=== PATIENT | female | born 1985 | race American Indian/Alaskan Native ===

== ENCOUNTER 2017-08-29 19:34 | Outpatient (CLI) | payer SELFPAY ==
[2017-08-29 20:04] VITALS: BP 108/71
== END 2017-08-29 20:45 | disposition home or self-care (01) ==
LOC: TRG 19:34 → LD 19:35 → TRG 20:45
PROVIDERS: ATTEND Obstetrics & Gynecology
DX: O48.0 Post-term pregnancy (principal); Z3A.40 40 weeks gestation of pregnancy
CPT/HCPCS: 59025

== ENCOUNTER 2017-09-01 12:11 | Inpatient (IN) | payer OTHER ==
[2017-09-01] MEDS ORDERED: NARCAN 0.4 MG/1 ML IV PRN (14:24)
[2017-09-01] MEDS ORDERED: MINERAL OIL PO PRN (14:24)
[2017-09-01] MEDS ORDERED: ePHEDrine SULFATE IV PRN (14:24)
[2017-09-01] MEDS ORDERED: BRETHINE IVP PRN (14:24)
[2017-09-01] MEDS ORDERED: ZOFRAN IV PRN (14:24)
[2017-09-01] MEDS ORDERED: XYLOCAINE 2% INFILTRATI ONE (14:24)
[2017-09-01] MEDS ORDERED: POLYCILLIN/NS 2 GM/100 ML 2 GM/100 ML BAG IV ONE ×3 (14:24→18:00)
[2017-09-01] MEDS ORDERED: SUBLIMAZE IV PRN (14:24)
[2017-09-01] MEDS ORDERED: BRETHINE SUB-Q PRN (14:24)
--- NOTE | 2017-09-01 14:30 | History and Physical Report ---
History of Present Illness Date of examination: 09/01/17 Chief complaint: SROM clear fluid @ 1100 History of present illness: Pt is a 31yo BF EDC 08/28/17; EGA 40 4/7 weeks presents to L&D complaining of SROM clear fluid @ 1100 followed by irregular contractions. She received care at [facility] and course was unremarkable. records are available, and GBS is Negative. Past History Past Medical History: no pertinent history Past Surgical History: no surgical history Family/Genetic History: none Social history: no significant social history, - Obstetrical History Expected Date of Delivery: 08/28/17 Actual Gestation: 40 Week(s) 5 Day(s) : 3 Medications and Allergies Allergies Allergy/AdvReac Type Severity Reaction Status Date / Time No Known Allergies Allergy Verified 08/29/17 19:43 Home Medications Medication Instructions Recorded Confirmed Last Taken Type Vitamins Tablet 1 mg DAILY 08/29/17 09/01/17 1 Day Ago History ~08/31/17 1 Valtrex 1 mg PO QAM 09/01/17 09/01/17 1 Day Ago History ~08/31/17 1 Review of Systems All systems: negative - Physical Exam Breasts: Positive: deferred Cardiovascular: Regular rate Lungs: Positive: Clear to auscultation Abdomen: Positive: normal appearance Genitourinary (Female): Positive: normal external genitalia Vagina: Positive: normal moisture Uterus: Positive: enlarged Extremities: Positive: normal - Obstetrical FHR: category 1 Uterine Contraction Monitor Mode: External Cervical Dilatation: 2 (per nurse) Cervical Effacement Percentage: 50 (per nurse) station: -3 Uterine Contraction Pattern: Absent Uterine Tone Measurement Phase: Contraction Results Result Diagrams: 09/01/17 15:03 All other labs normal. Assessment and Plan - Patient Problems (1) 40 weeks gestation of Onset Date: 09/01/17 Current Visit: Yes Status: Acute Plan to address problem: A: IUP @ 40 4/7 weeks in labor P: Admit to L&D for expectant vaginal delivery Will augment with pitocin
[2017-09-01] MEDS ORDERED: PITOCin/NS 30 UNIT/500ML 30 UNITS/500 ML BAG IV SCH ×2 (15:00)
[2017-09-01] MEDS ORDERED: PITOCin/NS 20 UNIT/1000ML DRIP 20 UNITS/1,000 ML BAG IV SCH (15:00)
[2017-09-01 15:36] LABS: Hematocrit 41.9 % (30.3-42.9); Hemoglobin 13.5 gm/dl (10.1-14.3); Mean Corpuscular HGB Conc 32 % (30-34); Mean Corpuscular Hemoglobin 28 pg (28-32); Mean Corpuscular Volume 87 fl (79-97); Red Blood Count 4.82 M/mm3 (3.65-5.03); Red Cell Distribution Width 14.7 % (13.2-15.2)
[2017-09-01 17:13] LABS: Platelet Count 97 K/mm3 (140-440)
[2017-09-01] MEDS: LACTATED RINGERS 1,000 ML IV SCH (18:24)
[2017-09-01] MEDS ORDERED: AMPICILLIN/NS 1 GM/50 ML 1 GM/50 ML BAG IV SCH (18:28)
[2017-09-02] MEDS: STADOL IV PRN ×2 (00:33→05:00)
[2017-09-02] MEDS: LACTATED RINGERS 1,000 ML IV SCH ×2 (01:55→04:07)
--- NOTE | 2017-09-02 03:56 | Progress Note ---
Assessment and Plan - Patient Problems (1) 40 weeks gestation of Onset Date: 09/01/17 Current Visit: Yes Status: Acute Plan to address problem: A: IUP @ 40 5/7 weeks in labor P: Will obtain an epidural, and then restart pitocin if possible Subjective - Subjective Date of service: 09/02/17 Principal diagnosis: IUP @ 40 5/7 weeks Interval history: Pt is a 31yo BF EDC 08/28/17; EGA 40 5/7 weeks who presented to L&D complaining of SROM clear fluid @ 1100 09/01/17 followed by irregular contractions. She was started on pitocin, but developed a non-reassuring tracing for which pitocin was discontinued. She has not had any significant cervical change. Patient reports: loss of fluid, movement normal, contractions, no new complaints, no vaginal bleeding Objective - Vital Signs Vital Signs: Vital Signs - 12hr 09/01/17 09/01/17 09/01/17 16:31 17:00 19:32 Temperature 97.7 F 98.5 F Pulse Rate 82 82 Respiratory 16 18 Rate Blood Pressure 117/70 Blood Pressure 115/70 [Left] O2 Sat by Pulse Oximetry 09/01/17 09/01/17 09/01/17 19:39 19:50 19:55 Temperature Pulse Rate 88 89 91 H Respiratory Rate Blood Pressure 115/70 Blood Pressure [Left] O2 Sat by Pulse 97 97 Oximetry 09/01/17 09/01/17 09/01/17 20:00 20:05 20:10 Temperature Pulse Rate 90 91 H 90 Respiratory Rate Blood Pressure Blood Pressure [Left] O2 Sat by Pulse 97 97 96 Oximetry 09/01/17 09/01/17 09/01/17 20:15 20:20 20:25 Temperature Pulse Rate 85 95 H 90 Respiratory Rate Blood Pressure Blood Pressure [Left] O2 Sat by Pulse 98 98 97 Oximetry 09/01/17 09/01/17 09/01/17 20:30 20:35 20:40 Temperature Pulse Rate 96 H 106 H 85 Respiratory Rate Blood Pressure Blood Pressure [Left] O2 Sat by Pulse 97 97 97 Oximetry 09/01/17 09/01/17 09/01/17 20:45 20:50 20:55 Temperature Pulse Rate 94 H 93 H 92 H Respiratory Rate Blood Pressure Blood Pressure [Left] O2 Sat by Pulse 96 97 98 Oximetry 09/01/17 09/01/17 09/01/17 21:00 21:05 21:10 Temperature Pulse Rate 90 95 H 98 H Respiratory Rate Blood Pressure Blood Pressure [Left] O2 Sat by Pulse 97 97 97 Oximetry 09/01/17 09/01/17 09/01/17 21:15 21:20 21:25 Temperature Pulse Rate 86 88 Respiratory 18 Rate Blood Pressure Blood Pressure [Left] O2 Sat by Pulse 97 98 Oximetry 09/01/17 09/01/17 09/01/17 21:26 21:31 21:36 Temperature Pulse Rate 80 89 89 Respiratory Rate Blood Pressure Blood Pressure [Left] O2 Sat by Pulse 98 97 96 Oximetry 09/01/17 09/01/17 09/01/17 21:37 21:41 21:43 Temperature Pulse Rate 88 88 90 Respiratory Rate Blood Pressure Blood Pressure [Left] O2 Sat by Pulse 94 95 94 Oximetry 09/01/17 09/01/17 09/01/17 21:46 21:51 21:53 Temperature Pulse Rate 87 89 94 H Respiratory Rate Blood Pressure Blood Pressure [Left] O2 Sat by Pulse 96 96 93 Oximetry 09/01/17 09/01/17 09/01/17 21:55 21:56 22:01 Temperature Pulse Rate 85 89 Respiratory 18 Rate Blood Pressure Blood Pressure [Left] O2 Sat by Pulse 95 97 Oximetry 09/01/17 09/01/17 09/01/17 22:06 22:07 22:11 Temperature Pulse Rate 82 83 82 Respiratory Rate Blood Pressure Blood Pressure [Left] O2 Sat by Pulse 95 94 95 Oximetry 09/01/17 09/01/17 09/01/17 22:13 22:16 22:21 Temperature Pulse Rate 78 85 95 H Respiratory Rate Blood Pressure Blood Pressure [Left] O2 Sat by Pulse 94 95 96 Oximetry 09/01/17 09/01/17 09/01/17 22:26 22:28 22:31 Temperature Pulse Rate 78 79 85 Respiratory Rate Blood Pressure Blood Pressure [Left] O2 Sat by Pulse 95 94 95 Oximetry 09/01/17 09/01/17 09/01/17 22:36 22:41 22:42 Temperature Pulse Rate 84 82 86 Respiratory Rate Blood Pressure Blood Pressure [Left] O2 Sat by Pulse 94 96 94 Oximetry 09/01/17 09/01/17 09/01/17 22:46 22:51 23:01 Temperature Pulse Rate 89 86 98 H Respiratory Rate Blood Pressure Blood Pressure [Left] O2 Sat by Pulse 95 97 97 Oximetry 09/01/17 09/01/17 09/01/17 23:06 23:11 23:16 Temperature Pulse Rate 89 90 91 H Respiratory Rate Blood Pressure 111/70 Blood Pressure [Left] O2 Sat by Pulse 98 97 97 Oximetry 09/01/17 09/01/17 09/01/17 23:21 23:26 23:31 Temperature Pulse Rate 80 88 90 Respiratory Rate Blood Pressure Blood Pressure [Left] O2 Sat by Pulse 97 98 97 Oximetry 09/01/17 09/01/17 09/01/17 23:32 23:36 23:41 Temperature Pulse Rate 82 93 H 89 Respiratory Rate Blood Pressure 113/69 Blood Pressure [Left] O2 Sat by Pulse 99 100 Oximetry 09/01/17 09/01/17 09/01/17 23:46 23:51 23:56 Temperature Pulse Rate 82 85 86 Respiratory Rate Blood Pressure Blood Pressure [Left] O2 Sat by Pulse 100 100 100 Oximetry 09/02/17 09/02/17 09/02/17 00:01 00:03 00:06 Temperature Pulse Rate 87 86 93 H Respiratory Rate Blood Pressure 122/76 Blood Pressure [Left] O2 Sat by Pulse 100 100 Oximetry 09/02/17 09/02/17 09/02/17 00:11 00:16 00:21 Temperature Pulse Rate 90 90 89 Respiratory Rate Blood Pressure Blood Pressure [Left] O2 Sat by Pulse 100 100 99 Oximetry 09/02/17 09/02/17 09/02/17 00:26 00:31 00:32 Temperature Pulse Rate 87 86 88 Respiratory Rate Blood Pressure 123/75 Blood Pressure [Left] O2 Sat by Pulse 100 100 Oximetry 09/02/17 09/02/17 09/02/17 00:33 00:36 00:41 Temperature Pulse Rate 89 82 Respiratory 18 Rate Blood Pressure Blood Pressure [Left] O2 Sat by Pulse 100 100 Oximetry 09/02/17 09/02/17 09/02/17 00:46 00:51 00:56 Temperature Pulse Rate 80 79 78 Respiratory Rate Blood Pressure Blood Pressure [Left] O2 Sat by Pulse 99 99 99 Oximetry 09/02/17 09/02/17 09/02/17 01:02 01:06 01:12 Temperature Pulse Rate 76 76 77 Respiratory Rate Blood Pressure 112/67 Blood Pressure [Left] O2 Sat by Pulse 99 99 99 Oximetry 09/02/17 09/02/17 09/02/17 01:16 01:21 01:26 Temperature Pulse Rate 83 82 82 Respiratory Rate Blood Pressure Blood Pressure [Left] O2 Sat by Pulse 99 98 99 Oximetry 09/02/17 09/02/17 09/02/17 01:31 01:32 01:36 Temperature Pulse Rate 84 83 83 Respiratory Rate Blood Pressure 117/69 Blood Pressure [Left] O2 Sat by Pulse 99 100 Oximetry 09/02/17 09/02/17 09/02/17 01:41 01:46 01:51 Temperature Pulse Rate 88 84 89 Respiratory Rate Blood Pressure Blood Pressure [Left] O2 Sat by Pulse 99 100 100 Oximetry 09/02/17 09/02/17 09/02/17 01:56 02:01 02:02 Temperature Pulse Rate 95 H 82 82 Respiratory Rate Blood Pressure 119/76 Blood Pressure [Left] O2 Sat by Pulse 99 98 Oximetry 09/02/17 09/02/17 09/02/17 02:06 02:11 02:16 Temperature Pulse Rate 82 88 83 Respiratory Rate Blood Pressure Blood Pressure [Left] O2 Sat by Pulse 99 98 99 Oximetry 09/02/17 09/02/17 09/02/17 02:21 02:26 02:31 Temperature Pulse Rate 86 88 93 H Respiratory Rate Blood Pressure Blood Pressure [Left] O2 Sat by Pulse 100 99 99 Oximetry 09/02/17 09/02/17 09/02/17 02:32 02:37 02:42 Temperature Pulse Rate 83 89 90 Respiratory Rate Blood Pressure 130/77 Blood Pressure [Left] O2 Sat by Pulse 98 99 Oximetry 09/02/17 09/02/17 09/02/17 02:46 02:51 02:56 Temperature Pulse Rate 86 86 93 H Respiratory Rate Blood Pressure Blood Pressure [Left] O2 Sat by Pulse 99 100 99 Oximetry 09/02/17 09/02/17 09/02/17 03:01 03:02 03:06 Temperature Pulse Rate 89 89 94 H Respiratory Rate Blood Pressure 132/78 Blood Pressure [Left] O2 Sat by Pulse 99 99 Oximetry 09/02/17 09/02/17 09/02/17 03:11 03:16 03:21 Temperature Pulse Rate 100 H 91 H 92 H Respiratory Rate Blood Pressure Blood Pressure [Left] O2 Sat by Pulse 100 99 99 Oximetry 09/02/17 09/02/17 09/02/17 03:26 03:31 03:34 Temperature Pulse Rate 94 H 98 H 101 H Respiratory Rate Blood Pressure 101/61 Blood Pressure [Left] O2 Sat by Pulse 99 100 Oximetry 09/02/17 09/02/17 09/02/17 03:37 03:42 03:46 Temperature Pulse Rate 91 H 93 H 93 H Respiratory Rate Blood Pressure Blood Pressure [Left] O2 Sat by Pulse 100 99 100 Oximetry - Exam FHR: category 2 Uterine Contraction Monitor Mode: External Cervical Dilatation: 3 Cervical Effacement Percentage: 70 station: -2 Uterine Contraction Pattern: Irregular Uterine Tone Measurement Phase: Contraction Uterine Contraction Intensity: Moderate - Labs Labs: Abnormal Labs 09/01/17 15:03 Plt Count 97 L Laboratory Results - last 24 hr 09/01/17 09/01/17 15:03 15:19 WBC 6.2 RBC 4.82 Hgb 13.5 Hct 41.9 MCV 87 MCH 28 MCHC 32 RDW 14.7 Plt Count 97 L Blood Type O POSITIVE Antibody Screen Negative
[2017-09-02 04:31] LABS: Hematocrit 41.5 % (30.3-42.9); Hemoglobin 14.1 gm/dl (10.1-14.3); Mean Corpuscular HGB Conc 34 % (30-34); Mean Corpuscular Hemoglobin 29 pg (28-32); Mean Corpuscular Volume 85 fl (79-97); Red Blood Count 4.86 M/mm3 (3.65-5.03); Red Cell Distribution Width 14.6 % (13.2-15.2)
[2017-09-02 04:34] LABS: Platelet Count 87 K/mm3 (140-440)
--- NOTE | 2017-09-02 08:26 | Progress Note ---
Assessment and Plan - Patient Problems (1) 40 weeks gestation of Onset Date: 09/01/17 Current Visit: Yes Status: Acute Plan to address problem: A: IUP @ 40 5/7 weeks in labor P: Will restart pitocin if possible Continue close monitoring Subjective - Subjective Date of service: 09/02/17 Principal diagnosis: IUP @ 40 5/7 weeks Interval history: Pt is a 31yo BF EDC 08/28/17; EGA 40 5/7 weeks who presented to L&D complaining of SROM clear fluid @ 1100 09/01/17 followed by irregular contractions. She was started on pitocin, but developed a non-reassuring tracing for which pitocin was discontinued. Her tracing has now improved to Cat 1, but unable to get an epidural due to platelet count <100k. Patient reports: loss of fluid, movement normal, contractions, no new complaints, no vaginal bleeding Objective - Vital Signs Vital Signs: Vital Signs - 12hr 09/01/17 09/01/17 09/01/17 20:25 20:30 20:35 Temperature Pulse Rate 90 96 H 106 H Respiratory Rate Blood Pressure O2 Sat by Pulse 97 97 97 Oximetry 09/01/17 09/01/17 09/01/17 20:40 20:45 20:50 Temperature Pulse Rate 85 94 H 93 H Respiratory Rate Blood Pressure O2 Sat by Pulse 97 96 97 Oximetry 09/01/17 09/01/17 09/01/17 20:55 21:00 21:05 Temperature Pulse Rate 92 H 90 95 H Respiratory Rate Blood Pressure O2 Sat by Pulse 98 97 97 Oximetry 09/01/17 09/01/17 09/01/17 21:10 21:15 21:20 Temperature Pulse Rate 98 H 86 88 Respiratory Rate Blood Pressure O2 Sat by Pulse 97 97 98 Oximetry 09/01/17 09/01/17 09/01/17 21:25 21:26 21:31 Temperature Pulse Rate 80 89 Respiratory 18 Rate Blood Pressure O2 Sat by Pulse 98 97 Oximetry 09/01/17 09/01/17 09/01/17 21:36 21:37 21:41 Temperature Pulse Rate 89 88 88 Respiratory Rate Blood Pressure O2 Sat by Pulse 96 94 95 Oximetry 09/01/17 09/01/17 09/01/17 21:43 21:46 21:51 Temperature Pulse Rate 90 87 89 Respiratory Rate Blood Pressure O2 Sat by Pulse 94 96 96 Oximetry 09/01/17 09/01/17 09/01/17 21:53 21:55 21:56 Temperature Pulse Rate 94 H 85 Respiratory 18 Rate Blood Pressure O2 Sat by Pulse 93 95 Oximetry 09/01/17 09/01/17 09/01/17 22:01 22:06 22:07 Temperature Pulse Rate 89 82 83 Respiratory Rate Blood Pressure O2 Sat by Pulse 97 95 94 Oximetry 09/01/17 09/01/17 09/01/17 22:11 22:13 22:16 Temperature Pulse Rate 82 78 85 Respiratory Rate Blood Pressure O2 Sat by Pulse 95 94 95 Oximetry 09/01/17 09/01/17 09/01/17 22:21 22:26 22:28 Temperature Pulse Rate 95 H 78 79 Respiratory Rate Blood Pressure O2 Sat by Pulse 96 95 94 Oximetry 09/01/17 09/01/17 09/01/17 22:31 22:36 22:41 Temperature Pulse Rate 85 84 82 Respiratory Rate Blood Pressure O2 Sat by Pulse 95 94 96 Oximetry 09/01/17 09/01/17 09/01/17 22:42 22:46 22:51 Temperature Pulse Rate 86 89 86 Respiratory Rate Blood Pressure O2 Sat by Pulse 94 95 97 Oximetry 09/01/17 09/01/17 09/01/17 23:01 23:06 23:11 Temperature Pulse Rate 98 H 89 90 Respiratory Rate Blood Pressure 111/70 O2 Sat by Pulse 97 98 97 Oximetry 09/01/17 09/01/17 09/01/17 23:16 23:21 23:26 Temperature Pulse Rate 91 H 80 88 Respiratory Rate Blood Pressure O2 Sat by Pulse 97 97 98 Oximetry 09/01/17 09/01/17 09/01/17 23:31 23:32 23:36 Temperature Pulse Rate 90 82 93 H Respiratory Rate Blood Pressure 113/69 O2 Sat by Pulse 97 99 Oximetry 09/01/17 09/01/17 09/01/17 23:41 23:46 23:51 Temperature Pulse Rate 89 82 85 Respiratory Rate Blood Pressure O2 Sat by Pulse 100 100 100 Oximetry 09/01/17 09/02/17 09/02/17 23:56 00:01 00:03 Temperature Pulse Rate 86 87 86 Respiratory Rate Blood Pressure 122/76 O2 Sat by Pulse 100 100 Oximetry 09/02/17 09/02/17 09/02/17 00:06 00:11 00:16 Temperature Pulse Rate 93 H 90 90 Respiratory Rate Blood Pressure O2 Sat by Pulse 100 100 100 Oximetry 09/02/17 09/02/17 09/02/17 00:21 00:26 00:31 Temperature Pulse Rate 89 87 86 Respiratory Rate Blood Pressure O2 Sat by Pulse 99 100 100 Oximetry 09/02/17 09/02/17 09/02/17 00:32 00:33 00:36 Temperature Pulse Rate 88 89 Respiratory 18 Rate Blood Pressure 123/75 O2 Sat by Pulse 100 Oximetry 09/02/17 09/02/17 09/02/17 00:41 00:46 00:51 Temperature Pulse Rate 82 80 79 Respiratory Rate Blood Pressure O2 Sat by Pulse 100 99 99 Oximetry 09/02/17 09/02/17 09/02/17 00:56 01:02 01:06 Temperature Pulse Rate 78 76 76 Respiratory Rate Blood Pressure 112/67 O2 Sat by Pulse 99 99 99 Oximetry 09/02/17 09/02/17 09/02/17 01:12 01:16 01:21 Temperature Pulse Rate 77 83 82 Respiratory Rate Blood Pressure O2 Sat by Pulse 99 99 98 Oximetry 09/02/17 09/02/17 09/02/17 01:26 01:31 01:32 Temperature Pulse Rate 82 84 83 Respiratory Rate Blood Pressure 117/69 O2 Sat by Pulse 99 99 Oximetry 09/02/17 09/02/17 09/02/17 01:36 01:41 01:46 Temperature Pulse Rate 83 88 84 Respiratory Rate Blood Pressure O2 Sat by Pulse 100 99 100 Oximetry 09/02/17 09/02/17 09/02/17 01:51 01:56 02:01 Temperature Pulse Rate 89 95 H 82 Respiratory Rate Blood Pressure O2 Sat by Pulse 100 99 98 Oximetry 09/02/17 09/02/17 09/02/17 02:02 02:06 02:11 Temperature Pulse Rate 82 82 88 Respiratory Rate Blood Pressure 119/76 O2 Sat by Pulse 99 98 Oximetry 09/02/17 09/02/17 09/02/17 02:16 02:21 02:26 Temperature Pulse Rate 83 86 88 Respiratory Rate Blood Pressure O2 Sat by Pulse 99 100 99 Oximetry 09/02/17 09/02/17 09/02/17 02:31 02:32 02:37 Temperature Pulse Rate 93 H 83 89 Respiratory Rate Blood Pressure 130/77 O2 Sat by Pulse 99 98 Oximetry 09/02/17 09/02/17 09/02/17 02:42 02:46 02:51 Temperature Pulse Rate 90 86 86 Respiratory Rate Blood Pressure O2 Sat by Pulse 99 99 100 Oximetry 09/02/17 09/02/17 09/02/17 02:56 03:01 03:02 Temperature Pulse Rate 93 H 89 89 Respiratory Rate Blood Pressure 132/78 O2 Sat by Pulse 99 99 Oximetry 09/02/17 09/02/17 09/02/17 03:06 03:11 03:16 Temperature Pulse Rate 94 H 100 H 91 H Respiratory Rate Blood Pressure O2 Sat by Pulse 99 100 99 Oximetry 09/02/17 09/02/17 09/02/17 03:21 03:26 03:31 Temperature Pulse Rate 92 H 94 H 98 H Respiratory Rate Blood Pressure O2 Sat by Pulse 99 99 100 Oximetry 09/02/17 09/02/17 09/02/17 03:34 03:37 03:42 Temperature Pulse Rate 101 H 91 H 93 H Respiratory Rate Blood Pressure 101/61 O2 Sat by Pulse 100 99 Oximetry 09/02/17 09/02/17 09/02/17 03:46 03:55 04:01 Temperature 98.3 F Pulse Rate 93 H 98 H 99 H Respiratory Rate Blood Pressure O2 Sat by Pulse 100 99 97 Oximetry 09/02/17 09/02/17 09/02/17 04:05 04:11 04:16 Temperature Pulse Rate 102 H 103 H 104 H Respiratory Rate Blood Pressure O2 Sat by Pulse 100 99 99 Oximetry 09/02/17 09/02/17 09/02/17 04:20 04:25 04:31 Temperature Pulse Rate 103 H 97 H 106 H Respiratory Rate Blood Pressure O2 Sat by Pulse 100 100 100 Oximetry 09/02/17 09/02/17 09/02/17 04:35 04:40 04:45 Temperature Pulse Rate 108 H 107 H 105 H Respiratory Rate Blood Pressure 118/72 O2 Sat by Pulse 100 100 99 Oximetry 09/02/17 09/02/17 09/02/17 04:50 04:55 05:00 Temperature Pulse Rate 113 H 112 H 100 H Respiratory 18 Rate Blood Pressure O2 Sat by Pulse 99 99 100 Oximetry 09/02/17 09/02/1718 05:05 05:10 05:15 Temperature Pulse Rate 101 H 97 H 90 Respiratory Rate Blood Pressure O2 Sat by Pulse 100 97 98 Oximetry 09/02/17 09/02/17 09/02/17 05:20 05:25 05:30 Temperature Pulse Rate 86 97 H 94 H Respiratory Rate Blood Pressure O2 Sat by Pulse 98 97 97 Oximetry 09/02/17 09/02/17 09/02/17 05:35 05:40 05:45 Temperature Pulse Rate 91 H 92 H 95 H Respiratory Rate Blood Pressure 134/74 O2 Sat by Pulse 98 98 98 Oximetry 09/02/17 09/02/17 09/02/17 05:50 05:55 06:00 Temperature Pulse Rate 92 H 97 H 94 H Respiratory Rate Blood Pressure O2 Sat by Pulse 98 96 97 Oximetry 09/02/17 09/02/17 09/02/17 06:05 06:10 06:15 Temperature Pulse Rate 97 H 98 H 100 H Respiratory Rate Blood Pressure O2 Sat by Pulse 98 98 98 Oximetry 09/02/17 09/02/17 09/02/17 06:20 06:25 06:30 Temperature Pulse Rate 92 H 101 H 99 H Respiratory Rate Blood Pressure O2 Sat by Pulse 98 98 98 Oximetry 09/02/17 09/02/17 09/02/17 06:34 06:35 06:40 Temperature Pulse Rate 101 H 102 H 96 H Respiratory Rate Blood Pressure 110/73 O2 Sat by Pulse 98 98 Oximetry 09/02/17 09/02/17 09/02/17 06:45 06:50 06:55 Temperature Pulse Rate 94 H 105 H 94 H Respiratory Rate Blood Pressure O2 Sat by Pulse 99 99 98 Oximetry 09/02/17 09/02/17 09/02/17 07:00 07:05 07:10 Temperature Pulse Rate 94 H 98 H 102 H Respiratory Rate Blood Pressure O2 Sat by Pulse 97 97 97 Oximetry 09/02/17 09/02/17 09/02/17 07:15 07:20 07:25 Temperature Pulse Rate 97 H 101 H 105 H Respiratory Rate Blood Pressure O2 Sat by Pulse 97 98 98 Oximetry 09/02/17 09/02/17 09/02/17 07:30 07:34 07:35 Temperature Pulse Rate 103 H 94 H 92 H Respiratory Rate Blood Pressure 130/76 O2 Sat by Pulse 98 98 Oximetry 09/02/17 09/02/17 09/02/17 07:40 07:45 08:15 Temperature Pulse Rate 94 H 92 H 101 H Respiratory Rate Blood Pressure O2 Sat by Pulse 98 98 98 Oximetry 09/02/17 09/02/17 08:20 08:25 Temperature Pulse Rate 96 H 98 H Respiratory Rate Blood Pressure O2 Sat by Pulse 97 96 Oximetry - Exam Abdomen: Present: normal appearance, soft Uterus: Present: normal FHR: category 1 Uterine Contraction Monitor Mode: External Cervical Dilatation: 4 (per nurse) Cervical Effacement Percentage: 70 (per nurse) station: -2 Uterine Contraction Pattern: Irregular Uterine Tone Measurement Phase: Contraction Uterine Contraction Intensity: Mild - Labs Labs: Abnormal Labs 09/01/17 09/02/17 15:03 04:00 Plt Count 97 L 87 L Laboratory Results - last 24 hr 09/01/17 09/01/17 09/02/17 15:03 15:19 04:00 WBC 6.2 10.0 RBC 4.82 4.86 Hgb 13.5 14.1 Hct 41.9 41.5 MCV 87 85 MCH 28 29 MCHC 32 34 RDW 14.7 14.6 Plt Count 97 L 87 L Blood Type O POSITIVE Antibody Screen Negative
--- NOTE | 2017-09-02 08:59 | Anesthesia Consultation ---
Anesthesia Consult and Med Hx Date of service: 09/02/17 - Airway Anesthetic Teeth Evaluation: Good ROM Head & Neck: Adequate Mental/Hyoid Distance: Adequate Mallampati Class: Class II Intubation Access Assessment: Probably Good - Pre-Operative Health Status ASA Pre-Surgery Classification: ASA2 Proposed Anesthetic Plan: General - Pulmonary Hx Asthma: No COPD: No Hx Pneumonia: No - Cardiovascular System Hx Hypertension: No - Central Nervous System Hx Seizures: No Hx Psychiatric Problems: No - Endocrine Hx Renal Disease: No Hx End Stage Renal Disease: No Hx Hypothyroidism: No Hx Hyperthyroidism: No - Hematic Hx Anemia: No Hx Sickle Cell Disease: No - Other Systems Hx Alcohol Use: No - Additional Comments Anesthesia Medical History Comments: low platelets count
[2017-09-02] MEDS ORDERED: PEPCID IV NR (09:00)
[2017-09-02] MEDS ORDERED: LACTATED RINGERS 1,000 ML IV SCH (09:00)
[2017-09-02] MEDS ORDERED: REGLAN IV NR (09:00)
[2017-09-02] MEDS ORDERED: ANCEF/STERILE WATER 2 GM/20 ML 2 GM/20 ML SYRINGE IV NR (09:00)
[2017-09-02] MEDS ORDERED: BICITRA PO NR (09:00)
[2017-09-02] MEDS ORDERED: PITOCin/NS 20 UNIT/1000ML DRIP 20 UNITS/1,000 ML BAG IV SCH ×2 (09:00→11:00)
--- NOTE | 2017-09-02 09:01 | Anesthesia Day of Surgery ---
Anesthesia Day of Surgery - Day of Surgery Patient Examined: Yes Patient H&P Reviewed: Yes Patient is NPO: Yes
[2017-09-02] MEDS ORDERED: DIPRIVAN 10 MG/ML IV ONE (09:22)
[2017-09-02] MEDS ORDERED: DILAUDID ONE (09:22)
[2017-09-02] MEDS ORDERED: XYLOCAINE MPF 2% ONE (09:23)
[2017-09-02] MEDS ORDERED: QUELICIN ONE (09:23)
[2017-09-02] MEDS ORDERED: WATER FOR IRRIG STERILE IR ONE (09:30)
[2017-09-02] MEDS ORDERED: NACL 0.9% IR ONE (09:30)
[2017-09-02] MEDS ORDERED: SUBLIMAZE ONE (10:09)
[2017-09-02] MEDS ORDERED: ZOFRAN ONE (10:21)
--- NOTE | 2017-09-02 10:29 | Operative Report ---
Operative Report Operative Report: Date of procedure: 09/02/2017 Pre-operative diagnosis: 1. Intrauterine at 40-5/7 weeks in labor 2. Nonreassuring surveillance 3. Failure to progress Post-operative diagnosis: Same Procedure name(s): Primary low transverse section Surgeon: Nagi Cole MD Garde Manger: None Anesthesia: Gen. endotracheal intubation EBL: 800 mL Findings: A 2999 g male Apgars 8 at 1 minute and 9 at 5 minutes. Clear amniotic fluid. Normal uterus. Normal tubes and ovaries bilaterally. Procedure: After the patient was prepped and draped in usual sterile fashion, and after general anesthesia was obtained, the skin knife was used to make a transverse skin incision. The incision was excised down to layer of the fascia , which was nicked in the midline and extended laterally using the Bovie cautery. The rectus muscles were dissected off the rectus fascia both superiorly and inferiorly. The rectus bellies in the midline, and the peritoneum was entered under direct visualization. The peritoneal incision was extended superiorly and inferiorly. A bladder flap was created and the bladder blade was then placed. The uterus was scored in a curvilinear linear fashion, entered in the midline revealing clear amniotic fluid. The infant's head was delivered onto the surgical field, and the oropharynx and nasopharynx were bulb suctioned. The rest of the 's body was delivered, cord was doubly clamped and cut and the infant was handed to the waiting respiratory team. Cord blood was then obtained. The placenta was manually removed from the uterus, and the uterus removed from its normal anatomical position. After gentle uterine lavage, the incision was inspected and found to be without extensions. It was then closed in 2 layers using 0 Vicryl suture in a running interlocking fashion, the second layer imbricating the first. After good hemostasis was achieved, copious amounts or irrigation was performed, and the gutters were suctioned free of blood and blood clots. Tisseel sealant was sprayed across the uterine incision. The uterus was then returned to its normal anatomical position, and after excellent hemostasis assured, the peritoneum was re-approximated using 3-0 Vicryl suture in a running interlocking fashion, and then the rectus muscles were re-approximated using 3- 0 Vicryl suture in a [id number] configuration. The fascia was then re- approximated using 0 Vicryl suture in running interlocking fashion. The subcutaneous layer was made hemostatic using Bovie cautery, the Tisseel sealant was sprayed across the fascial incision and the skin edges re-approximated using 4-0 Vicryl suture in a sub-cuticular fashion. Patient tolerated the procedure well was transported to recovery in stable condition.
[2017-09-02] MEDS ORDERED: TORADOL IV PRN (10:47)
[2017-09-02] MEDS: TORADOL IV PRN ×2 (10:50→22:26)
[2017-09-02] MEDS: DILAUDID IV PRN ×4 (10:52→11:39)
[2017-09-02] MEDS ORDERED: BENADRYL IV PRN (11:00)
[2017-09-02] MEDS ORDERED: PHENERGAN PO PRN (11:00)
[2017-09-02] MEDS ORDERED: D5LR 1,000 ML IV SCH (11:00)
[2017-09-02] MEDS ORDERED: SODIUM CHLORIDE FLUSH SYRINGE 10 ML IV NR (11:00)
[2017-09-02] MEDS ORDERED: MYLICON PO PRN (11:00)
[2017-09-02] MEDS ORDERED: LANSINOH TP PRN (11:00)
[2017-09-02] MEDS ORDERED: SODIUM CHLORIDE FLUSH SYRINGE 10 ML IV PRN (11:00)
[2017-09-02] MEDS ORDERED: ANCEF/NS 1 GM/50 ML 1 GM/50 ML BAG IV SCH (11:00)
[2017-09-02] MEDS ORDERED: PHENERGAN PR PRN (11:00)
[2017-09-02] MEDS ORDERED: ZOFRAN IV PRN (11:00)
[2017-09-02] MEDS ORDERED: NARCAN 0.4 MG/1 ML IV PRN ×2 (11:00)
[2017-09-02] MEDS ORDERED: TUCKS PAD TP PRN (11:00)
[2017-09-02] MEDS ORDERED: TYLENOL PO PRN (11:00)
[2017-09-02] MEDS: ceFAZolin 1 GM in NACL 0.9% 20 ML IV SCH (18:30)
[2017-09-02] MEDS ORDERED: MILK OF MAGNESIA PO PRN (22:00)
[2017-09-02] MEDS ORDERED: SENOKOT PO PRN (22:00)
[2017-09-02 22:52] LABS: Hematocrit 33.5 % (30.3-42.9); Hemoglobin 11.2 gm/dl (10.1-14.3)
[2017-09-03] MEDS: ceFAZolin 1 GM in NACL 0.9% 20 ML IV SCH (02:28)
[2017-09-03] MEDS: NORCO 5/325 PO PRN ×3 (04:17→17:30)
[2017-09-03] MEDS: MOTRIN PO PRN ×3 (04:18→17:29)
[2017-09-03] MEDS ORDERED: BOOSTRIX IM ONE (06:00)
[2017-09-03] MEDS: FEOSOL PO SCH (09:58)
[2017-09-03] MEDS: PRENATAL VITAMIN PO SCH (09:58)
[2017-09-03] MEDS ORDERED: M-M-R II VACCINE SUB-Q ONE (11:00)
--- NOTE | 2017-09-03 13:57 | Progress Note ---
Assessment and Plan - Patient Problems (1) 40 weeks gestation of Onset Date: 09/01/17 Current Visit: Yes Status: Resolved (2) Status post Onset Date: 09/03/17 Current Visit: Yes Status: Resolved Plan to address problem: A: S/P C Section - POD #1 Doing well P: Continue RPOC Anticipate discharge in 24-48hrs Subjective - Subjective Date of service: 09/03/17 Principal diagnosis: s/p C Section - POD #1 Interval history: Pt is feeling well without complaints. Bleeding improved. Tolerating a liquid diet without nausea or vomiting. Patient reports: appetite normal, voiding normally, pain well controlled, flatus , ambulating normally, no dizzy ambulation, no nauseated [place]: doing well, bottle feeding Objective - Vital Signs Latest vital signs: Vital Signs Temp Pulse Resp BP BP Pulse Ox 09/03/17 08:38 98.2 F 96 H 18 110/71 99 09/02/17 23:30 98.7 F 77 16 111/69 09/02/17 20:00 98.6 F 82 16 117/72 09/02/17 16:37 98.1 F 105 H 18 112/74 95 Intake and Output 09/02/17 09/03/17 09/03/17 22:59 06:59 14:59 Output Total 500 1900 Balance -500 -1900 Output: Urine 500 1900 Indwelling Catheter 500 900 Void 1000 Other: Total, Output Amount 500 600 Voiding Method Indwelling Catheter # Voids Void 1 - Exam Breasts: Present: deferred Cardiovascular: Present: Regular rate Lungs: Present: Clear to auscultation Abdomen: Present: normal appearance, soft Uterus: Present: normal, firm, fundal height below umbilicus Extremities: Present: normal Incision: Present: normal, dry, intact, dressed - Labs Labs: Laboratory Tests 09/01/17 09/01/17 09/01/17 15:03 15:03 15:19 WBC 6.2 RBC 4.82 Hgb 13.5 Hct 41.9 MCV 87 MCH 28 MCHC 32 RDW 14.7 Plt Count 97 L RPR Nonreactive HIV 1&2 Antibody Rapid HIV P24 Antigen Blood Type O POSITIVE Antibody Screen Negative 09/02/17 09/02/17 09/02/17 04:00 22:29 22:29 WBC 10.0 RBC 4.86 Hgb 14.1 11.2 Hct 41.5 33.5 D MCV 85 MCH 29 MCHC 34 RDW 14.6 Plt Count 87 L RPR HIV 1&2 Antibody Rapid Non react HIV P24 Antigen Non react Blood Type Antibody Screen
[2017-09-03] MEDS: PERCOCET 5/325 PO PRN (23:40)
[2017-09-04] MEDS: PERCOCET 5/325 PO PRN (05:19)
--- NOTE | 2017-09-04 10:51 | Progress Note ---
Assessment and Plan - Patient Problems (1) 40 weeks gestation of Onset Date: 09/01/17 Current Visit: Yes Status: Resolved (2) Status post Onset Date: 09/03/17 Current Visit: Yes Status: Resolved Plan to address problem: A: S/P C Section - POD #2 Doing well P: May go home today. Subjective - Subjective Date of service: 09/04/17 Principal diagnosis: s/p C Section - POD #2 Interval history: Pt is feeling well without complaints. Tolerating a reg diet without nausea or vomiting, ambulating and voiding without difficulty. Patient reports: appetite normal, voiding normally, pain well controlled, flatus , ambulating normally : doing well, bottle feeding Objective - Vital Signs Latest vital signs: Vital Signs Resp BP 09/04/17 05:19 20 09/03/17 23:45 18 124/73 09/03/17 23:40 20 Intake and Output 09/03/17 09/04/17 09/04/17 22:59 06:59 14:59 Intake Total 600 240 Balance 600 240 Intake: Oral 240 240 Intake, Free Water 360 Other: Total, Intake Amount 240 240 # Voids Void 1 1 - Exam Breasts: Present: deferred Cardiovascular: Present: Regular rate Lungs: Present: Clear to auscultation Abdomen: Present: normal appearance Uterus: Present: normal, firm, fundal height below umbilicus Incision: Present: normal, dry, intact, dressed
[2017-09-04] MEDS: PRENATAL VITAMIN PO SCH (11:02)
[2017-09-04] MEDS: FEOSOL PO SCH (11:02)
--- NOTE | 2017-09-04 12:10 | Discharge Summary ---
Providers - Providers Date of Admission: 09/01/17 16:32 Date of discharge: 09/04/17 Attending physician: SAMANTHA SCHULZ Primary care physician: SAMANTHA SCHULZ Hospitalization Reason for admission: rupture of membranes, IUP at term Delivery: Procedure: section, primary low transverse Episiotomy: none Laceration: none Incision: normal, dry, intact, dressed Other procedures: none complications: none Discharge diagnosis: IUP at term delivered [place] baby: male Hospital course: Pt is a 31yo BF EDC 08/28/17; EGA 40 5/7 weeks who presented to L&D complaining of SROM clear fluid @ 1100 18 followed by irregular contractions. She was started on pitocin, but developed a non-reassuring tracing for which pitocin was discontinued, and she was delivered by an uncomplicated C Section. By POD #2 she was tolerating a reg diet without nausea or vomiting, ambulating and voiding without difficulty. She was therefore discharged to home on POD #2 in stable condition. Condition at discharge: Good Disposition: DC-01 TO HOME OR SELFCARE - Discharge Diagnoses (1) 40 weeks gestation of Status: Resolved (2) Status post Status: Resolved Plan - Discharge Medications Prescriptions: Ferrous Sulfate [Feosol 325 MG tab] 325 mg PO BID #60 tablet HYDROcodone/APAP 5-325 [[place] 5/325] 1 each PO Q6HR PRN #30 tablet PRN Reason: Pain Ibuprofen [Motrin] 800 mg PO Q8HR PRN #30 tablet PRN Reason: Moder Pain Unrelieved By [place] Vit Calc,Iron,Folic [ Vitamins] 1 each PO DAILY #30 tablet - Provider Discharge Summary Activity: routine, no sex for 6 weeks, no heavy lifting 4 weeks, no strenuous exercise Diet: routine Instructions: routine Additional instructions: [] Smoking cessation referral if applicable(refer to patient education folder for contact #) [] Refer to [facility] Booklet Call your doctor immediately for: * Fever > 100.5 * Heavy vaginal bleeding ( >1 pad per hour) * Severe persistent headache * Shortness of breath * Reddened, hot, painful area to leg or breast * Drainage or odor from incision. * Keep incision clean and dry at all times and follow doctor's instructions regarding bathing/showering - Follow up plan Follow up: SAMANTHA SCHULZ MD [Primary Care Provider] - 14 Days
[2017-09-04] MEDS: NORCO 5/325 PO PRN ×2 (17:06→22:22)
[2017-09-05 11:04] VITALS: BP 118/80
== END 2017-09-05 10:30 | disposition home or self-care (01) | DRG 766 ==
LOC: TRG 12:11 → LD 16:32 → OB 09-02 12:24
PROVIDERS: ADMIT Obstetrics & Gynecology; ATTEND Obstetrics & Gynecology
PROC: 10D00Z1 Extraction of Products of Conception, Low, Open Approach (ICD-10-PCS; principal; 2017-09-02)
PROC: 3E0234Z Introduction of Serum, Toxoid and Vaccine into Muscle, Percutaneous Approach (ICD-10-PCS; 2017-09-03)
DX: O76 Abnormality in fetal heart rate and rhythm complicating labor and delivery (principal); Z3A.40 40 weeks gestation of pregnancy; Z37.0 Single live birth; Z23 Encounter for immunization
CPT/HCPCS: 36415; 85014; 85018; 85027; 86592; 86850; 86900; 86901; 87806; 88307; 99211; G0463; J0290; J0330; J0595; J0690; J1170; J1885; J2405; J2590; J2704; J2765; J3010; J7120; J7121

== ENCOUNTER 2021-08-21 14:37 | Emergency (ER) | payer SELFPAY ==
[2021-08-21 18:27] LABS: Alanine Aminotransferase 12 units/L (7-56); Albumin 4.3 g/dL (3.9-5); Blood Urea Nitrogen 10 mg/dL (7-17); Hemolysis Index 9
[2021-08-21 18:29] LABS: BUN/Creatinine Ratio 17
[2021-08-21 18:42] LABS: Hematocrit 40.1 % (30.3-42.9); Mean Corpuscular HGB Conc 33 % (30-34); Mean Corpuscular Volume 85 fl (79-97); Platelet Count 205 K/mm3 (140-440); Red Blood Count 4.73 M/mm3 (3.65-5.03); Red Cell Distribution Width 15.9 % (13.2-15.2)
--- NOTE | 2021-08-21 18:49 | Ultrasound Report ---
US OB transvaginal, US OB <= 14 weeks fetus INDICATION / CLINICAL INFORMATION: , vag bleeding. TECHNIQUE: Transabdominal. COMPARISON: None available. FINDINGS: UTERUS: Appears within normal limits. There is a 2.2 cm posterior uterine lesion, most consistent wit h fibroid. GESTATIONAL SAC: Gestational sac is abnormal morphology and oval in appearance. YOLK SAC: Present EMBRYO/FETUS: - [place]-Rump Length = 1.6 cm - Heart Rate, beats per minute (if present) = No heart rate identified. ADNEXA: No significant abnormality. FREE FLUID: None. ADDITIONAL FINDINGS: Fluid is seen within the cervix and the central canal is dilated 0.3 cm. IMPRESSION: 1. pole is 1.6cm and there is no heart beat on transvaginal scan consistent with edd lure. Cervix is dilated and findings most consistent with inevitable miscarriage. 1. Findings diagnostic of failure * crown-rump length (CRL) of 7 mm and no heartbeat on a transvaginal scan 3 * mean sac diameter (MSD) of 25 mm and no embryo on a transvaginal scan Findings suspicious but not diagnostic of failure * crown-rump length (CRL) of <7 mm and no heartbeat * mean sac diameter (MSD) of 16-24 mm and no embryo Signer Name: Ventura Odell MD Signed: 08/21/2021 6:44 PM Workstation Name: [id number]
--- NOTE | 2021-08-21 20:15 | Emergency Department Report ---
ED HPI - General Chief complaint: Vaginal Bleeding Stated complaint: PREGANT/BLEEDING Time Seen by Provider: 08/21/21 16:50 Source: patient Mode of arrival: Ambulatory Limitations: No Limitations - History of Present Illness Initial comments: 35-year-old black female with no past medical history who is at 13 weeks gestation presents to the emergency department for evaluation of vaginal bleeding. She states that she started out today having spotting that has progressed to increased vaginal bleeding with some mild abdominal cramping t ingrid. She states that she went to see her cutter in at [facility] and was advised to come to the ER for further evaluation. She denies nausea, vomiting, dysuria, and fever. MD Complaint: abdominal pain, vaginal bleeding -: Gradual, This evening Severity scale (0 -10): 1 Quality: cramping Associated symptoms: vaginal bleeding, abdominal pain. denies: nausea/vomiting, vaginal discharge, dysuria, headache, vision changes, malaise, dysparuenia, rash, seizure, shortness of breath, syncope, weakness Vaginal bleeding: heavy :: Yes Number of weeks : 12 OB History - Current : no complications OB History - Previous Pregnancies: miscarriage - Related Data : 3 Para: 2 Ab: 1 (Miscarriage) Home Medications Medication Instructions Recorded Confirmed Last Taken Vitamins Tablet 1 mg DAILY 08/29/17 08/21/21 1 Day Ago ~08/31/17 1 Valtrex 1 mg PO QAM 09/01/17 08/21/21 1 Day Ago ~08/31/17 1 Previous Rx's Medication Instructions Recorded Last Taken Type Ferrous Sulfate [Feosol 325 MG tab] 325 mg PO BID #60 tablet 09/02/17 Unknown Rx HYDROcodone/APAP 5-325 [[place] 1 each PO Q6HR PRN #30 tablet 09/02/17 Unknown Rx 5/325] Ibuprofen [Motrin] 800 mg PO Q8HR PRN #30 tablet 09/02/17 Unknown Rx Vit Calc,Iron,Folic 1 each PO DAILY #30 tablet 09/02/17 Unknown Rx [ Vitamins] Allergies Allergy/AdvReac Type Severity Reaction Status Date / Time No Known Allergies Allergy Verified 08/21/21 17:02 ED Review of Systems ROS: Stated complaint: PREGANT/BLEEDING Other details as noted in HPI Comment: All other systems reviewed and negative Constitutional: denies: chills, fever Respiratory: denies: cough, shortness of breath, SOB with exertion, SOB at rest Cardiovascular: denies: chest pain, palpitations Gastrointestinal: abdominal pain. denies: nausea, vomiting, diarrhea, hematemesis, melena, hematochezia Genitourinary: denies: urgency, dysuria, frequency, hematuria, discharge Musculoskeletal: denies: back pain Skin: denies: rash, lesions Neurological: denies: headache ED Past Medical Hx - Past Medical History Hx Hypertension: No Hx Diabetes: No Hx Deep Vein Thrombosis: No Hx Renal Disease: No Hx Sickle Cell Disease: No Hx Seizures: No Hx Asthma: No Hx COPD: No Hx HIV: No - Social History Smoking Status: Never Smoker Substance Use Type: None - Medications Home Medications: Home Medications Medication Instructions Recorded Confirmed Last Taken Type Vitamins Tablet 1 mg DAILY 08/29/17 08/21/21 1 Day Ago History ~08/31/17 1 Valtrex 1 mg PO QAM 09/01/17 08/21/21 1 Day Ago History ~08/31/17 1 Ferrous Sulfate [Feosol 325 MG tab] 325 mg PO BID #60 tablet 09/02/17 08/21/21 Unknown Rx HYDROcodone/APAP 5-325 [[place] 1 each PO Q6HR PRN #30 tablet 09/02/17 08/21/21 Unknown Rx 5/325] Ibuprofen [Motrin] 800 mg PO Q8HR PRN #30 tablet 09/02/17 08/21/21 Unknown Rx Vit Calc,Iron,Folic 1 each PO DAILY #30 tablet 09/02/17 08/21/21 Unknown Rx [ Vitamins] ED Physical Exam - General Limitations: No Limitations General appearance: alert, in no apparent distress - Head Head exam: Present: atraumatic, normocephalic - Eye Eye exam: Present: normal appearance. Absent: conjunctival injection - Neck Neck exam: Present: normal inspection, full ROM. Absent: tenderness, lymphadenopathy - Respiratory Respiratory exam: Present: normal lung sounds bilaterally. Absent: respiratory distress, wheezes, rales, rhonchi, stridor, chest wall tenderness - Cardiovascular Cardiovascular Exam: Present: regular rate, normal heart sounds - GI/Abdominal GI/Abdominal exam: Present: soft, normal bowel sounds. Absent: distended, tenderness, guarding, rebound, rigid - Extremities Exam Extremities exam: Present: normal inspection, normal capillary refill. Absent: tenderness, pedal edema, joint swelling, calf tenderness - Back Exam Back exam: Present: normal inspection, full ROM. Absent: CVA tenderness (R), CVA tenderness (L) - Neurological Exam Neurological exam: Present: alert, oriented X3 - Psychiatric Psychiatric exam: Present: normal affect, normal mood - Skin Skin exam: Present: warm, dry, intact, normal color ED Course Vital Signs 08/21/21 08/21/21 08/21/21 14:56 14:58 16:58 Temperature 97.8 F 98.8 F Pulse Rate 96 H 76 Respiratory 16 12 Rate Blood Pressure 121/74 Blood Pressure 124/85 [Right] O2 Sat by Pulse 99 99 Oximetry 08/21/21 08/21/21 16:59 20:25 Temperature Pulse Rate 72 Respiratory 12 Rate Blood Pressure Blood Pressure 127/86 [Right] O2 Sat by Pulse 99 100 Oximetry ED Medical Decision Making - Lab Data Result diagrams: 08/21/21 17:57 08/21/21 17:57 - Radiology Data Radiology results: report reviewed ultrasound: FINDINGS: UTERUS: Appears within normal limits. There is a 2.2 cm posterior uterine lesion, most consistent with fibroid. GESTATIONAL SAC: Gestational sac is abnormal morphology and oval in appearance. YOLK SAC: Present EMBRYO/FETUS: - [place]-Rump Length = 1.6 cm - Heart Rate, beats per minute (if present) = No heart rate identified. ADNEXA: No significant abnormality. FREE FLUID: None. ADDITIONAL FINDINGS: Fluid is seen within the cervix and the central canal is dilated 0.3 cm. IMPRESSION: 1. pole is 1.6cm and there is no heart beat on transvaginal scan consistent with failure. Cervix is dilated and findings most consistent with inevitable miscarriage. 1. Findings diagnostic of failure * crown-rump length (CRL) of 7 mm and no heartbeat on a transvaginal scan 3 * mean sac diameter (MSD) of 25 mm and no embryo on a transvaginal scan Findings suspicious but not diagnostic of failure * crown-rump length (CRL) of <7 mm and no heartbeat * mean sac diameter (MSD) of 16-24 mm and no embryo - Medical Decision Making 35-year-old black female with no past medical history who is at 13 weeks gestation presents to the emergency department for evaluation of vaginal bleeding. She states that she started out today having spotting that has progressed to increased vaginal bleeding with some mild abdominal cramping today. She states that she went to see her cutter in at [facility] and was advised to come to the ER for further evaluation. She denies nausea, vomiting, dysuria, and fever. ultrasound with probable failure with no heartbeat and open cervix. No abnormalities noted on lab work, and urine negative for urinary tract infection. Patient advised of probable inevitable miscarriage. She is advised to follow-up with [facility] for further evaluation and management and return to the emergency department for any concerning symptoms. All questions were answered. She verbalized understanding of and agreement with plan of care. Critical care attestation.: If time is entered above; I have spent that time in minutes in the direct care of this critically ill patient, excluding procedure time. ED Disposition Clinical Impression: Miscarriage Disposition: 01 HOME / SELF CARE / HOMELESS Is pt being admited?: No Does the pt Need Aspirin: No Condition: Stable Instructions: Miscarriage, [id number], Managing Loss Additional Instructions: Follow-up with [facility] for further evaluation and management. Return to the emergency department as needed. Referrals: [facility] [Provider Group] - 3-5 Days Time of Disposition: 20:14
[2021-08-21 20:25] VITALS: BP 127/86
[2021-08-21 20:36] LABS: Mucus,Urine FEW /HPF
[2021-08-21 20:38] LABS: Bilirubin,Urine NEG (Negative); Blood,Urine LG (Negative); Color,Urine Yellow (Yellow); Protein,Urine <15 mg/dL mg/dL (Negative); Urobilinogen,Urine < 2.0 mg/dL (<2.0)
== END 2021-08-21 20:26 | disposition home or self-care (01) ==
LOC: ED 14:37
DX: O20.0 Threatened abortion (principal); Z3A.13 13 weeks gestation of pregnancy; Z79.899 Other long term (current) drug therapy
CPT/HCPCS: 36415; 76801; 76817; 80053; 81001; 84702; 85027; 99284